=== PATIENT | male | born 1965 | race Caucasian/White ===

== ENCOUNTER 2022-05-31 14:40 | Outpatient (CLI) | payer BC, SELFPAY ==
--- NOTE | 2022-05-31 15:00 | ECHO_ITS ---
Patient Info Name: Garcia Hdz Age: 56 years : 1965 Gender: Male Ht: 67 in Wt: 290 lbs BSA: 2.56 m2 HR: 89 bpm BP: 144 / 81 mmHg Technical Quality: Fair Exam Date: 05/31/2022 3:10 PM Exam Location: [facility] Patient Status: Outpatient Admit Date: 05/31/2022 Staff Ordering Physician: Tomasa Sandoval NP Senior Product Development Scientist: Ivania Goff RDCS Attending Provider: Tomasa Sandoval NP Exam Type: CA echo doppler color flow Study Info Indications I10 - Essential (primary) hypertension Complete two-dimensional, color flow and Doppler transthoracic echocardiogram is performed. Summary 1. Complete two-dimensional, color flow and Doppler transthoracic echocardiogram is performed. 2. Left ventricular chamber dimension is mildly enlarged. 3. Left ventricular systolic function is normal, estimated at 55-60%. 4. There is mildly increased left ventricular wall thickness. 5. The left ventricular diastolic function is grade I diastolic dysfunction. 6. E/e' 6 is not elevated. 7. There is mild aortic valve sclerosis. 8. There is trace tricuspid valve regurgitation. 9. No pulmonary hypertension, estimated pulmonary arterial systolic pressure is 32 mmHg. Left Ventricle E/e' 6 is not elevated. Left ventricular chamber dimension is mildly enlarged. Left ventricular systolic function is normal, estimated at 55-60%. There is mildly increased left ventricular wall thickness. The left ventricular diastolic function is grade I diastolic dysfunction. Right Ventricle Right ventricular chamber dimension is normal. Right ventricular systolic function is normal. Left Atria Left atrial chamber dimension is normal. Right Atria Right atrial chamber dimension is normal. Aortic Valve The aortic valve is trileaflet. There is mild aortic valve sclerosis. There is no aortic valve stenosis. There is no aortic valve regurgitation. Pulmonic Valve There is no pulmonic regurgitation. Mitral Valve There is no mitral valve stenosis. There is no mitral valve regurgitation. Tricuspid Valve There is trace tricuspid valve regurgitation. No pulmonary hypertension, estimated pulmonary arterial systolic pressure is 32 mmHg. Pericardium/Pleural There is no pericardial effusion. Inferior Vena Cava Normal inferior vena cava with >50% collapse upon inspiration consistent with normal right atrial pressure, 5 mmHg. Aorta The aortic root size at the sinus of Valsalva is normal. Left Ventricular Outflow Tract Name Value Normal LVOT 2D LVOT Diameter 2.1 cm LVOT Doppler LVOT Peak Gradient 6 mmHg LVOT Mean Gradient 3 mmHg LVOT VTI 23 cm LVOT VTI/AV VTI Ratio 0.8 LVOT Stroke Volume 76 ml LVOT CO 17.4 l/min LVOT CI 6.8 l/min/m2 Pulmonic Valve Name Value Normal
--- NOTE | 2022-05-31 15:37 | ECG_ITS ---
Measurements Intervals [place] Rate: 71 P: 11 MS: 163 QRS: 0 QRSD: 96 T: 26 QT: 341 QTc: 371 Interpretive Statements SINUS RHYTHM CANNOT RULE OUT SEPTAL MYOCARDIAL INFARCTION , PROBABLY OLD [40+ ms Q WAVE IN V1/V2] NONSPECIFIC T-WAVE ABNORMALITY ABNORMAL ECG NO PREVIOUS ECG AVAILABLE FOR COMPARISON Electronically Signed On 06-01-2022 9:57:37 CDT by Jose Sanchez M.D.
== END 2022-05-31 14:41 | disposition home or self-care (01) ==
PROVIDERS: PCP Family Medicine; Visit Provider Nurse Practitioner Family
DX: R06.02 Shortness of breath (principal); I10 Essential (primary) hypertension; I70.0 Atherosclerosis of aorta
CPT/HCPCS: 93005; 93306

== ENCOUNTER → 2023-04-29 15:35 | Outpatient (CLI) | payer BC, SELFPAY ==
--- NOTE | ~2023-04-29 | XR_ITS ---
XR lumbar spine min 4V 04/29/2023 15:58 Indication: Low back pain Procedure: 5 views lumbar spine Comparison: No prior studies for comparison. Findings: Vertebral body heights are maintained. There is disc narrowing at L5-S1. There is mild levo scoliosis. Pedicles intact. There is facet hypertrophy of the mid and lower lumbar spine. No acute fr acture, subluxation or dislocation. No spondylolisthesis. Sacral foramen are symmetric. Impression: 1: Mild lumbar spondylosis with levoscoliosis. Reviewed, dictated and finalized at location A. Impression: 1: Mild lumbar spondylosis with levoscoliosis.
== END ==
PROVIDERS: PCP Nurse Practitioner Family; Visit Provider Nurse Practitioner Family
DX: M47.816 Spondylosis without myelopathy or radiculopathy, lumbar region (principal)
CPT/HCPCS: 72110

== ENCOUNTER 2025-02-25 00:10 | Day surgery (SDC) | payer BC, SELFPAY ==
[2025-02-18 09:33] VITALS: BMI 36.8
--- OUTSIDE RECORDS SUMMARY | 2025-02-25 00:13 | XMS_ITS | Clinical Summary ---
Author Organization [facility] [place] [address] Address [address] [place] [address] Care Team Providers Care Safe Expert Name Role Phone Reza Finn MD Primary Care Provider [phone] Allergies No known active allergies Medications PARoxetine (PAXIL) 20 mg tabletIndication s:Anxiety with Depression Take 1 tablet (20 mg total) by mouth every morning 11 9 Active testosterone cypionate (DEPO-TESTOTERON E) 200 mg/mL injectionIndicat ions:Androgen Deficiency once a week On Sundays 3 8 Active tadalafiL (CIALIS) 20 mg tablet Take 1 tablet (20 mg total) by mouth daily as needed for erectile dysfunction 0 Active calcium carb/magnesium hydrox (ROLAIDS ORAL) Take by mouth as needed (heartburn) Active Rybelsus 7 mg tabletIndication s:type 2 diabetes mellitus Take 1 tablet (7 mg total) by mouth daily before breakfast 2 Active levothyroxine (SYNTHROID) 88 mcg tabletIndication s:hypothyroidism Take 1 tablet (88 mcg total) by mouth campaign marketing manager before breakfast 2 Active metFORMIN XR (GLUCOPHAGE XR) 500 mg 24 hr tabletIndication s:type 2 diabetes mellitus Take 4 tablets (2,000 mg total) by mouth daily with breakfast 2 Active tamsulosin (FLOMAX) 0.4 mg extended release capsuleIndicatio ns:benign prostatic hyperplasia with lower urinary tract sx Take 1 capsule (0.4 mg total) by mouth nightly 2 Active pravastatin (PRAVACHOL) 40 mg tabletIndication s:hyperlipidemia Take 1 tablet (40 mg total) by mouth nightly 2 Active irbesartan-hydro chlorothiazide (AVALIDE) 150-12.5 mg per tabletIndication s:hypertension Take 1 tablet by mouth every morning 2 Active aspirin (Adult Low Dose Aspirin) 81 mg enteric coated tablet Take 1 tablet (81 mg total) by mouth daily 2 Active Additional Information Patient taking differently:81 mg oralEvery morning, Indications: Heart Health, Informant: Self, Reported on 09/04/2023 cyclobenzaprine (FLEXERIL) 10 mg tablet Take 1 tablet (10 mg total) by mouth 3 (three) times a day as needed for muscle spasms 20 tablet 3 Active meloxicam (MOBIC) 15 mg tablet Take 1 tablet (15 mg total) by mouth daily 30 tablet 1 3 Active Additional Information Patient taking differently:15 mg oralDaily PRN, pain, Informant: Self, Reported on 09/04/2023 oxyCODONE-acetam inophen (PERCOCET) 5-325 mg per tabletIndication s:Pain Take 1 tablet by mouth every 4 (four) hours as needed for pain 20 tablet 3 Active ondansetron (ZOFRAN) 4 mg tablet Take 1 tablet (4 mg total) by mouth every 8 (eight) hours as needed for nausea 12 tablet 3 Active methylPREDNISolo ne (Medrol, Ramos,) 4 mg Dosepack Take 1 tablet (4 mg total) by mouth as directed Take as directed on package 1 packet 4 Active Active Problems Problem Noted Date Diagnosed Date Trochanteric bursitis of left hip 06/22/2024 Complex tear of medial menis cus of right knee as current injury 09/02/2023 Abnormal stress test 08/27/2022 NSVT (nonsustained ventricular tachycardia) 08/07 DYAN on CPAP 07/18/2022 SUMMERS (dyspnea on exertion) 07/18/2022 Abnormal ECG 07/18/2022 Multiple risk factors for coronary artery diseas e 07/18/2022 Hypertension associated with diabetes 07/18/2022 Mixed diabetic hyperlipidemi a associated with type 2 diabetes mellitus 07/18/2022 Morbid (severe) obesity due to excess calories 1 Body mass index (BMI) 45.0-49.9, adult 2 Chronic pain 01/21/2022 Low back pain 01/21/2022 Obesity 01/21/2022 Sacroiliitis, not elsewhere classified 2 Trochanteric bursitis of right hip 01/21/2022 Acute medial meniscus tear of left knee 07/10/20 21 Overview (07/10/2021): Added automatically from request for surgery [id number] 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 Good ROM KNEE SURGERY 10/06/2012 - 10/05/2013 Left SHOULDER SURGERY 10/06/2015 - 10/05/2016 Left UMBILICAL HERNIA REPAIR KNEE ARTHROSCOPY 10/06/2020 - 10/05/2021 Left Medical History Medical History Date Comments Hypertension well controlled Hyperlipidemia on statin Hypothyroid on armour thyroi d Sleep apnea wears CPAP Low testosterone GERD (gastroesophageal reflux disease) Rolaids PRN- ~1x/month Family History Medical History Relation Name Comments Diabetes Father Hypertension Father Diabetes Mother Heart disease Mother Hypertension Mother Anesthesia problems Neg Hx Relation Name Status Comments Father Mother Social History Tobacco Use Types Packs/Day Years Used Date Smoking Tobacco: Never Smokeless Tobacco: Never Alcohol Use Standard Drinks/Week Comments Yes 0 (1 standard drink = 0.6 oz pur e alcohol) AUDIT-C Answer Date Recorded Q1: How often do you have a drink containing alc ohol? 2-3 times a week 09/16/2023 Q2: How many drinks containi ng alcohol do you have on a typical day when you are drinking? 1 or 2 09/16/2023 Frequency of Binge Drinking Not on file 09/05 Personal Safety Answer Date Recorded Have you ever been in or are you currently in a harmful physical or emotional relationship or is someone making you feel afraid or unsafe? 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 Gender Identity Not on file Sexual Orientation Not on file Obstetrics History Last Filed Vital Signs Vital Sign Reading Time Taken Comments Blood Pressure 126/68 09/16/2023 11:35 AM TABLE MACHINE OPERATOR Pulse 84 09/16/2023 11:40 AM TABLE MACHINE OPERATOR Temperature 36 C (96.8 F) 09/16/2023 11:40 AM TABLE MACHINE OPERATOR Respiratory Rate 19 09/16/2023 11:40 AM TABLE MACHINE OPERATOR Oxygen Saturation 92% 09/16/2023 11:40 AM TABLE MACHINE OPERATOR Inhaled Oxygen Concentration - - Weight 114.3 kg (252 lb) 06/22/2024 1:25 PM CDT Height 170.2 cm (5' 7 ) 06/22/2024 1:25 PM CDT Body Mass Index 39.47 06/22/2024 1:25 PM CDT Plan of Treatment Health Maintenance Due Date Last Done Comments Albumin Creatinine Ratio, Urine 1965 Colon Cancer Screening-Colonoscopy 1965 Depression Screening 1965 Hemoglobin A1C 1965 Hepatitis C Screening 1965 Prostate Cancer Screening-PSA 1965 Dilated Eye Exam 1965 Foot Exam 1965 DTaP/Tdap/Td Vaccine (1 - Tdap) 1974 Hepatitis B Screening 1981 Regular Well Visit/Exam 18-64 1981 Pneumococcal vaccine <65 (1 of 2 - PCV) 1982 Zoster Vaccine (1 of 2) 2013 Lipid Panel 07/18/2023 07/18/2022 eGFR 10/09/2023 10/09/2022 Covid-19 Vaccine ( season) 2024, 06/03/2021 Influenza Vaccine (Season Ended) 2025 Medical Devices Implanted Type Area Pig Conveyor Operator Device Identifier Shelf Expiration Date Model / Serial / Lot Screws-Tibia Left: Knee Plates & Screws Neck Description:Cervical fusion with 3 plates & 6 screws Procedures Procedure Name Priority Date/Time Associated Diagnosis Comments EGFR STAT 10/09/2022 1:26 PM TABLE MACHINE OPERATOR POCT LIPID PANEL Routine 07/18/2022 12:1 5 PM CDT Lipid screening from Last 3 Months or Most Recently Relevant to Health Maintenance Results * eGFR (10/09/2022 1:26 PM TABLE MACHINE OPERATOR) eGFR 99 mL/min/1. 73 m2 [facility] Comment: Interpretive Data Reference Interval Normal >/= 90 mL/min/1.73m2 Mildly decreased* 60 - 89 mL/min/1.73m2 Mildly to moderately decreased 45 - 59 mL/min/1.73m2 Moderately to severely decreased 30 - 44 mL/min/1.73m2 Severely decreased 15 - 29 mL/min/1.73m2 Kidney Failure < 15 mL/min/1.73m2 *Relative to young adult level Estimated glomerular filtration rate is determined by the 2020 CKD-EPI equation recommended by the National Kidney Foundation (A Unifying Approach to GFR Estimation: Recommendations of the NKF-ASK Task Force on Reassessing the Inclusion of Race in Diagnosing Kidney Disease, JASN 2020). The CKD-EPI equation should not be used for patients with unstable renal function and has not been validated in children and those over 70. Current interpretive data was last reviewed 2021. Blood 10/09/2022 1:26 PM TABLE MACHINE OPERATOR 10/09/2022 1:34 PM TABLE MACHINE OPERATOR Sven Mcfarland MD LAB BLOOD ORDERABLES Fi nal Result [facility] [address] Department [place] [address] * POCT lipid panel (07/18/2022 12:15 PM CDT) Cholesterol, POC 174 mg/dL HDL, POC 36 mg/dL Triglycerides, POC 210 mg/dL LDL Cholesterol POC 96 mg/dL Chol/HDL Ratio, POC 4.9 Comment:Glucose 102 Non-HDL Cholesterol, POC 138 mg/dL Cholesterol Total, POC 174 mg/dL Capillary blood 07/18/2022 1 2:15 PM CDT us Guillaume Sheets MD POINT OF CARE TEST ORDER ROSEMARY Final Result from Last 3 Months or Most Recently Relevant to Health Maintenance Insurance [place]ESS CHOICE [place] Care Teams Safe Expert Relationship Specialty Start Date End Date Reza Finn MD [address] [id number] PCP - General Family Medicine 05/08/21
--- OUTSIDE RECORDS SUMMARY | 2025-02-25 00:14 | XMS_ITS | Continuity of Care Document ---
Author Organization [facility] Address [address] [place] [address] [address] [place] [address] Phone Care Team Providers Care Sports Medicine Specialist Name Role Phone Jesusita Cuadra PT Unavailable Unavailable Procedures Procedure Date Progress Note Therapeutic Activities Neuromuscular Re-Ed Therapeutic Exercise Manual Therapy Therapeutic Activities Neuromuscular Re-Ed Therapeutic Exercise Manual Therapy Therapeutic Activities Neuromuscular Re-Ed Therapeutic Exercise Manual Therapy Therapeutic Activities Neuromuscular Re-Ed Therapeutic Exercise Manual Therapy Therapeutic Activities Neuromuscular Re-Ed Therapeutic Exercise Manual Therapy Hot or Cold Pack Therapeutic Activities Neuromuscular Re-Ed Therapeutic Exercise Manual Therapy Hot or Cold Pack Therapeutic Activities Neuromuscular Re-Ed Therapeutic Exercise Manual Therapy Hot or Cold Pack Therapeutic Activities Neuromuscular Re-Ed Therapeutic Exercise Manual Therapy Hot or Cold Pack Therapeutic Activities Neuromuscular Re-Ed Manual Therapy Therapeutic Exercise Hot or Cold Pack Therapeutic Activities Neuromuscular Re-Ed Therapeutic Exercise Manual Therapy Therapeutic Activities Neuromuscular Re-Ed Therapeutic Exercise Manual Therapy Hot or Cold Pack Doc neg elder mal no plan PT Evaluation Moderate Complexity Therapeutic Activities Neuromuscular Re-Ed Therapeutic Exercise Manual Therapy Hot or Cold Pack Therapeutic Activities Neuromuscular Re-Ed Therapeutic Exercise Manual Therapy Hot or Cold Pack Therapeutic Activities Neuromuscular Re-Ed Therapeutic Exercise Manual Therapy Hot or Cold Pack Therapeutic Activities Neuromuscular Re-Ed Therapeutic Exercise Manual Therapy Hot or Cold Pack Electrical Stimulation Therapeutic Activities Neuromuscular Re-Ed Therapeutic Exercise Neuromuscular Re-Ed Therapeutic Exercise Manual Therapy Hot or Cold Pack Electrical Stimulation Neuromuscular Re-Ed Therapeutic Exercise Manual Therapy Neuromuscular Re-Ed Therapeutic Exercise Hot or Cold Pack Electrical Stimulation Neuromuscular Re-Ed Therapeutic Exercise Manual Therapy Hot or Cold Pack Electrical Stimulation Therapeutic Activities Neuromuscular Re-Ed Therapeutic Exercise Manual Therapy PT Evaluation Moderate Complexity Therapeutic Activities Neuromuscular Re-Ed Manual Therapy Therapeutic Activities Neuromuscular Re-Ed Therapeutic Exercise Hot or Cold Pack Therapeutic Activities Manual Therapy Neuromuscular Re-Ed Hot or Cold Pack Neuromuscular Re-Ed Hot or Cold Pack Therapeutic Activities Therapeutic Exercise Manual Therapy Manual Therapy Therapeutic Exercise Hot or Cold Pack Neuromuscular Re-Ed Therapeutic Activities Therapeutic Activities Neuromuscular Re-Ed Manual Therapy Therapeutic Exercise Hot or Cold Pack PT Evaluation Moderate Complexity Neuromuscular Re-Ed Manual Therapy Therapeutic Activities Therapeutic Exercise Hot or Cold Pack Therapeutic Activities Neuromuscular Re-Ed Manual Therapy Therapeutic Exercise Progress Note Therapeutic Activities Manual Therapy Therapeutic Exercise Neuromuscular Re-Ed Therapeutic Activities Manual Therapy Hot or Cold Pack Neuromuscular Re-Ed Therapeutic Exercise Neuromuscular Re-Ed Therapeutic Activities Manual Therapy Hot or Cold Pack Therapeutic Exercise Therapeutic Exercise Neuromuscular Re-Ed Manual Therapy Hot or Cold Pack Therapeutic Exercise Neuromuscular Re-Ed Manual Therapy Hot or Cold Pack PT Evaluation Moderate Complexity Neuromuscular Re-Ed Therapeutic Exercise Manual Therapy Progress Note Therapeutic Activities Therapeutic Exercise Manual Therapy Hot or Cold Pack Manual Therapy Therapeutic Activities Therapeutic Exercise Hot or Cold Pack Therapeutic Activities Therapeutic Exercise Manual Therapy Manual Therapy Therapeutic Activities Therapeutic Exercise Electrical Stimulation Hot or Cold Pack COVID-19 Additional Safety Supplies/Time Therapeutic Activities Manual Therapy Therapeutic Exercise COVID-19 Additional Safety Supplies/Time Hot or Cold Pack Therapeutic Activities Therapeutic Exercise COVID-19 Additional Safety Supplies/Time Manual Therapy Therapeutic Exercise COVID-19 Additional Safety Supplies/Time Manual Therapy Hot or Cold Pack Therapeutic Exercise Hot or Cold Pack Manual Therapy PT Evaluation Low Complexity COVID-19 Additional Safety Supplies/Time Therapeutic Activities Therapeutic Exercise Neuromuscular Re-Ed Hot or Cold Pack Manual Therapy Progress Note Therapeutic Activities Neuromuscular Re-Ed Therapeutic Exercise Manual Therapy Hot or Cold Pack Therapeutic Activities Neuromuscular Re-Ed Therapeutic Exercise Manual Therapy Hot or Cold Pack Progress Note Therapeutic Activities Neuromuscular Re-Ed Therapeutic Exercise Manual Therapy Therapeutic Activities Neuromuscular Re-Ed Manual Therapy Therapeutic Exercise Hot or Cold Pack Therapeutic Activities Neuromuscular Re-Ed Therapeutic Exercise Manual Therapy Therapeutic Activities Neuromuscular Re-Ed Therapeutic Exercise Manual Therapy Therapeutic Activities Neuromuscular Re-Ed Therapeutic Exercise Manual Therapy Hot or Cold Pack Therapeutic Activities Neuromuscular Re-Ed Therapeutic Exercise Manual Therapy Therapeutic Activities Therapeutic Exercise Neuromuscular Re-Ed Manual Therapy Hot or Cold Pack Therapeutic Activities Neuromuscular Re-Ed Therapeutic Exercise Manual Therapy Hot or Cold Pack Therapeutic Activities Neuromuscular Re-Ed Therapeutic Exercise Manual Therapy PT Evaluation Low Complexity Therapeutic Activities Therapeutic Exercise Manual Therapy Therapeutic Exercise Neuromuscular Re-Ed Manual Therapy Hot or Cold Pack Therapeutic Exercise Neuromuscular Re-Ed Manual Therapy Hot or Cold Pack Therapeutic Exercise Neuromuscular Re-Ed Manual Therapy Therapeutic Exercise Neuromuscular Re-Ed Manual Therapy Therapeutic Exercise Manual Therapy Hot or Cold Pack PT Evaluation Low Complexity Therapeutic Exercise Manual Therapy Hot or Cold Pack Free Assessment Advance Directives Directive Yes / No Effective Date File Name No Information Encounters Encounter Description Practice Location Reason(s) For Visit Diagnoses Date Provider Providers Copied on Encounter [facility] [address], [id number], tel:[phone] Mihir No Information Khalif Mc. . [facility] [address], [id number], tel:[phone] [place] No Information Khalif Mc. . Referring Provider: Jose García, [address] [place], [address]. tel:[phone] [facility] [address] [place] [address], [id number], tel:[phone] Mihir No Information Rudy Flynn. [address] [place] [address], [address], [place], [facility], . tel:[phone] Referring Provider: Jose García, [address] [place], [address]. tel:[phone] [facility] [address], [id number], tel:[phone] Mihir No Information Anurag Estrada. . Referring Provider: Jose García, [address] [place], [address]. tel:[phone] [facility], [id number], tel:[phone] Laura No Information Rudy Flynn. [address] [facility], [address], [place], [address], [place]. tel:[phone] Referring Provider: Jose García, [address] [place], [address]. tel:[phone] [facility], [address] [place] [address], [place], [place], [id number], tel:[phone] Mihir No Information Anurag Arreagaon. . Referring Provider: Jose García, [address] [place], [address]. tel:[phone] [facility], [address] [place] [address], [place], [place], [id number], [place] tel:[phone] Laura No Information Rudy Flynn. [address] [place] [address], [address], [place], [address], [place]. tel:[phone] Referring Provider: Jose García, [address] [place], [address]. tel:[phone] [facility], [address] [place] [address], [id number], [place] tel:[phone] Laura No Information Anurag Arreagaon. . Referring Provider: Jose García, [address] [place], [address]. tel:[phone] [facility], [address] [place], [place] [address] [address], [place], [place], [id number], [place] tel:[phone] Laura No Information Rudy Flynn. [address] [facility], [address], [place], [address], [place]. tel:[phone] Referring Provider: Jose García, [address] [place], [address]. tel:[phone] [facility], [address] [place] [address], [id number], [place] tel:[phone] Laura No Information Rudy Flynn. [address] [facility], [address], [place], [place], [facility], . tel:[phone] Referring Provider: Jose García, [address] , [place], [address]. tel:[phone] [facility], [address], [id number], tel:[phone] Mihir No Information Florencio Villarreal. . Referring Provider: Jose García, [address] , [place], [address]. tel:[phone] [facility], [address] [place] [address], [place], [place], [id number], tel:[phone] Laura No Information Rudy Flynn. [address] [facility], [address], [place], [place], [facility], . tel:[phone] Referring Provider: Jose García, [address] , [place], [address]. tel:[phone] [facility] [place] [address], [id number], tel:[phone] Laura No Information Khalif Mc. . Referring Provider: Jose García, [address] [place], [address]. tel:[phone] [facility], [address] [place] [address], [place], [place], [id number], [place] tel:[phone] Laura No Information Rudy Flynn. [address] [facility], [address], [place], [place], [facility], . tel:[phone] Referring Provider: Tomasa Sandoval, [address], [place], [address]. tel:[phone] [facility] [address], [place], [place], [id number], tel:[phone] Laura No Information Rudy Flynn. [address] [place] [address], [address], [place], [facility], . tel:[phone] Referring Provider: Tomasa Sandoval, [address], [place], [address]. tel:[phone] [address], [place], [place], [id number], tel:[phone] Laura No Information Rudy Flynn. [address] [place] [address], [address], [place], [facility], . tel:[phone] Referring Provider: Tomasa Sandoval, [address], [place], [address]. tel:[phone] [place] [address] [place], [place] [address], [place], [place], [id number], tel:[phone] Laura No Information Khalif Mc. . Referring Provider: Tomasa Sandoval, [address], [place], [address]. tel:[phone] [address], [place], [place], [id number], tel:[phone] Mihir No Information Rudy Flynn. [address] [place] [address], [address], [place], [facility], . tel:[phone] Referring Provider: Tomasa Sandoval, [address], [place], [address]. tel:[phone], [place], [place], [id number], tel:[phone] Laura No Information Amber Brownlee. . Referring Provider: Tomasa Sandoval, [address], [place], [address]. tel:[phone] [place] [address], [address], [place], [place], [id number], [place] tel:[phone] Laura No Information Garrels Jesusita. . Referring Provider: Tomasaesther Sandoval, [address], [place], [address]. tel:[phone] [facility] [address], [place], [place], [id number], tel:[phone] Laura No Information Garrels Jesusita. . Referring Provider: Tomasaesther Sandoval, [address] [facility] [address], [place], [address]. tel:[phone] [facility], [address] [place], [place] [address] [address], [place], [place], [id number], tel:[phone] Mihir No Information Modglin Kem. . Referring Provider: Tomasa Jaime, [address], [place], [address]. tel:[phone] [facility], [place], [place], [id number], tel:[phone] Laura No Information Garrels Jesusita. . Referring Provider: Tomasa Jaime, [address] [facility] [address], [place], [address]. tel:[phone] [facility], [place], [place], [id number], [place] tel:[phone] Mihir No Information Garrels Jesusita. . Referring Provider: Jose García, [address] [facility] , [place], [address]. tel:[phone] [facility], [place], [place], [id number], [place] tel:[phone] Mihir No Information Khalif Mc. . Referring Provider: Jose García, [address] [place], [address]. tel:[phone] [place] [address], [id number], tel:[phone] Laura No Information Rudy Flynn. [address] [facility], [address], [place], [place], [facility], . tel:[phone] Referring Provider: Jose García, [address] [place], [address]. tel:[phone], [id number], tel:[phone] Laura No Information Rudy Flynn. [address] [place] [address], [address], [place], [facility], . tel:[phone] Referring Provider: Jose García, [address] [place], [address]. tel:[phone], [id number], tel:[phone] Mihir No Information Rudy Flynn. [address] [place] [address], [address], [place], [facility], . tel:[phone] Referring Provider: Jose García, [address] [place], [address]. tel:[phone], [id number], tel:[phone] Laura No Information Khalif Mc. . Referring Provider: Jose García, [address] [place] [place], [address]. tel:[phone] [facility] [address] [place] [address], [id number], tel:[phone] Mihir No Information Angel Weinberg. . Referring Provider: [facility] [place] [address], [place], [place], [id number], tel:[phone] Mihir No Information Angel Weinberg. . Referring Provider: [facility] [place] [address], [place], [place], [id number], tel:[phone] Laura No Information Rudy Flynn. [address] [place] [address], [address], [place], [facility], . tel:[phone] Referring Provider: [facility]. [facility] [address] [place] [address], [place], [place], [id number], tel:[phone] Laura No Information Rudy Flynn. [address] [place] [address], [address], [place], [facility], . tel:[phone] Referring Provider: [facility]. [facility] [address] [place] [address], [place], [place], [id number], tel:[phone] Mihir No Information Rudy Flynn. [address] [place] [address], [address], [place] [address], . tel:[phone] Referring Provider: [facility]. [facility] [address] [place] [address], [place], [place], [id number], tel:[phone] Mihir No Information Rudy Flynn. [address] [place] [address], [address], [place] [address], . tel:[phone] Referring Provider: [facility], [address] [place] [address], [place], [place], [address], tel:[phone] Laura No Information Yessenia Hoffman. [facility], [address], [place], [place], [facility], [place]. tel:[phone] Referring Provider: [facility], [place], [place], [address], tel:[phone] Mihir No Information Bermeo Satnam. . [facility], [place], [place], [address], tel:[phone] Laura No Information Rudy Flynn. [address] [place] [address], [address], [place], [facility], [place]. tel:[phone] [facility], [place], [place], [address], tel:[phone] Laura No Information Angel Weinberg. . [facility], [place], [place], [address], tel:[phone] Laura No Information Bermeo Satnam. . [facility], [place], [place], [address], tel:[phone] Mihir No Information Bermeo Satnam. . [facility], [place], [id number], tel:[phone] Laura No Information Bermeo Satnam. . [facility], [place], [place], [address], tel:[phone] Laura No Information Rudy Flynn. [address] [place] [address], [address], [place], [facility], . tel:[phone] [facility], [place], [place], [address], tel:[phone] Laura No Information Beremo Satnam. . [facility] [place] [address], [place], [place], [id number], tel:[phone] Laura No Information Rudy Flynn. [address] [place] [address], [address], [place], [facility], . tel:[phone] Referring Provider: [facility] [place] [address], [place], [place], [address], tel:[phone] Laura No Information Angel Weinberg. . Referring Provider: [facility]. [facility] [address] [place] [address], [place], [place], [address], tel:[phone] Mihir No Information Rudy Flynn. [address] [place] [address], [address], [place], [facility], . tel:[phone] Referring Provider: [facility] [place] [address], [place], [place], [address], tel:[phone] Laura No Information Angel Weinberg. . Referring Provider: [facility] [place] [address], [place], [place], [address], tel:[phone] Mihir No Information Bermeo Satnam. . Referring Provider: [facility] [place] [address], [place], [place], [address], tel:[phone] Laura No Information Angel Weinberg. . Referring Provider: [facility] [place] [address], [place], [place], [address], tel:[phone] Mihir No Information Angel Weinberg. . Referring Provider: [facility] [place] [address], [place], [place], [address], tel:[phone] Laura No Information Jean-Claude Hay. . Referring Provider: [facility] [address] [place] [address], [place], [place], [address], tel:[phone] Laura No Information Angel Weinberg. . Referring Provider: [facility]. [facility] [address] [place] [address], [place], [place], [address], tel:[phone] Mihir No Information Angel Weinberg. . Referring Provider: [facility] [place] [address], [place], [place], [address], tel:[phone] Laura No Information Rudy Flynn. [address] [place] [address], [address] tel:[phone] Referring Provider: [facility]. [facility] [address] [place] [address], [place], [place], [address], tel:[phone] Laura No Information Rudy Flynn. [address] [place] [address], [address] [address], . tel:[phone] Referring Provider: [facility] [place] [address], [place], [place], [address], tel:[phone] Laura No Information Angel Weinberg. . Referring Provider: [facility] [place] [address], [place], [place], [address], tel:[phone] Mihir Low back painPain in left hip Obed Boyd. . Referring Provider: [facility] [place] [address], [place], [place], [address], tel:[phone] Laura Low back painPain in left hip Obed Boyd. . Referring Provider: [facility] [address], [place], [place], [address], tel:[phone] Laura Low back painPain in left hip Jean-Claude Hay. . Referring Provider: [facility] [address], [place], [place], [address], tel:[phone] Laura Low back painPain in left hip Obed Boyd. . Referring Provider: [facility] [address] [place] [address], [place], [place], [id number], tel:[phone] Laura Low back painPain in left hip Obed Boyd. . Referring Provider: [facility] [address] [place] [address], [place], [place], [address], tel:[phone] Mihir Low back painPain in left hip Jean-Claude Hay. . Referring Provider: [facility] [address] [facility] [address], [place], [place], [address], tel:[phone] Laura No Information Jean-Claude Hay. . Referring Provider: Physician Screen. Family History Family Member Type Diagnosis Age At Onset No Information Payers Payer name Insurance type Covered libertarian ID Authorshamika dillard(s) [facility] [id number] Social History Type Description Quantity Date Captured Comments Sex Male Smoking Status No Information Chief Complaint And Reason For Visit No Information Reason For Referral Reason For Referral No Information Plan Of Treatment Date Type Action Status Referral Ordered: Referrals: Specialist. Evaluate and Treat (related to F43.21) ordered Referral Ordered: Clinical Psychology (related to Depression) ordered Referral Ordered: Referrals: Specialist. Evaluate and Treat (related to Adjustment disorder with depressed mood) ordered History Of Present Illness Encounter Date Complaint History Of Prese nt Illness No Information Functional Status Date Functional Assessmen t No Information Instructions Date Instruction Additional Infor mation Giving encouragement to exercise Related to Overweight Giving encouragement to exercise Related to Overweight Giving encouragement to exercise Related to Overweight Giving encouragement to exercise Related to Overweight Giving encouragement to exercise Related to Overweight Giving encouragement to exercise Related to Overweight Giving encouragement to exercise Related to Overweight Giving encouragement to exercise Related to Overweight Giving encouragement to exercise Related to Overweight Giving encouragement to exercise Related to Overweight Giving encouragement to exercise Related to Overweight Assessments Type Assessment Date No Information Patient Care Teams Name Effective Dates (start - stop) Status Members No Information
--- OUTSIDE RECORDS SUMMARY | 2025-02-25 00:14 | XMS_ITS | Referral Summary ---
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 Overview (01/09/2017): Umbilical hernia Social History Tobacco Use Types Packs/Day Years [...] on file Legal Sex Male 12:38 AM [employer] Gender Identity Not on file Sexual Orientation Not on file Last Filed Vital Signs Vital Sign Reading Time Taken Comments Blood Pressure 126/68 09/16/2023 11:35 AM [employer] Pulse 84 09/16/2023 11:40 AM [employer] Temperature 36 C (96.8 F) 09/16/2023 11:40 AM [employer] Respiratory Rate 19 09/16/2023 11:40 AM [employer] Oxygen Saturation 92% 09/16/2023 11:40 AM [employer]ED [employer] Inhaled Oxygen Concentration - - Weight 114.3 kg (252 lb) 06/22/2024 1:25 PM CDT Height 170.2 cm (5' 7 ) 06/22/2024 1:25 PM CDT Body Mass Index 39.47 06/22/2024 1:25 PM CDT Plan of Treatment Not on file Medical Devices Implanted Type Area Employment Case Manager Device Identifier Shelf Expiration Date Model / Serial / Lot Screws-Tibia Left: Knee Plates & Screws Neck Description:Cervical fusion with 3 plates & 6 screws Procedures Procedure Name Priority Date/Time Associated Diagnosis Comments EGFR STAT 10/09/2022 1:26 PM [employer] POCT LIPID PANEL Routine 07/18/2022 12:1 5 PM CDT Lipid screening from Last 3 Months or Most Recently Relevant to Health Maintenance Results * eGFR (10/09/2022 1:26 PM ARMOURED [employer] ESC[employer]) Pathologist [facility] [place] eGFR 99 mL/min/1. 73 m2 [facility] Comment: Interpretive Data Reference Interval Normal >/= [...] last reviewed 2021. Blood 10/09/2022 1:26 PM [employer]OURED [employer] 10/09/2022 1:34 PM [employer]ED [employer] us Sven Mcfarland MD LAB BLOOD ORDERABLES Fi nal Result [facility] [address] Department [place] [employer] [place] [address] * POCT lipid panel (07/18/2022 12:15 PM CDT) Cholesterol, POC 174 mg/dL HDL, POC 36 mg/dL Triglycerides, POC 210 mg/dL LDL Cholesterol POC 96 mg/dL Chol/HDL Ratio, POC 4.9 Comment:Glucose 102 Non-HDL Cholesterol, POC 138 mg/dL Cholesterol Total, POC 174 mg/dL Capillary blood 07/18/2022 1 2:15 PM CDT Guillaume Sheets MD POINT OF CARE TEST ORDER [place] Final Result from Last 3 Months or Most Recently Relevant to Health Maintenance Insurance [employer] [facility] Care Teams Cable Repairer Relationship Specialty Start Date End Date Reza Finn MD [address] [address] PCP - General Family Medicine 05/08/21
--- OUTSIDE RECORDS SUMMARY | 2025-02-25 00:14 | XMS_ITS | Clinical Summary ---
Author Organization [facility] Address [address] [place] [address] Care Team Providers Care Wildlife Management Professor Name Role Phone Tomasa Sandoval APRN, CNP Primary Care Provider + Medications No known medications Encounters Date Type Department Care Team Description 12/29/2024 4:42 PM CDT - 12/29/2024 11:59 PM CDT [facility] [address] [place] [address] Tomasa Sandoval APRN, CNP Discharge Disposition: Discharged to home or Selfcare 12/29/2024 Travel 12/15/2024 Transcribe Orders [facility] Central Scheduling [address] [place] [address] Tomasa Sandoval APRN, CNP Left lower quadrant abdominal swelling, mass and lump (Primary Dx); Umbilical hernia without obstruction or gangrene from Last 3 Months Social History Tobacco Use Types Packs/Day Years Used Date Smoking Tobacco: Never Assessed Sex and Gender Information Value Date Recorded Sex Assigned at Not on file Legal Sex Male 2:40 PM CDT Gender Identity Not on file Sexual Orientation Not on file Plan of Treatment Health Maintenance Due Date Last Done Comments Hepatitis C Virus (HCV) Screening 1965 TdaP Immunization 1965 Colonoscopy 2008 Colorectal Cancer Screening 2008 Cologuard 2013 Immunochemical Fecal Occult Blood 2013 Pneumococcal Immunization (5 0+ years) (1 of 1 - PCV) 2013 Zoster Immunization (1 of 2) 2013 PSA Discussion 2018 SARS-COV-2 Immunization ( season) 2024 06/24/2021, 06/03/2021 Influenza Immunization (Seas on Ended) 2025 Respiratory Syncytial Virus (RSV) Immunization (Adult) (1 - 1-dose 75+ series) 2038 Hepatitis B Immunization Aged Out No longer eligible based on patient's age to complete this topic Meningococcal Immunization (ACWY) Aged Out No longer eligible b ased on patient's age to complete this topic Rotavirus Immunization Aged Out No lo nger eligible based on patient's age to complete this topic Procedures Procedure Name Priority Date/Time Associated Diagnosis Comments CT ABDOMEN W/O CONTRAST Routine 12/29/2024 4:59 PM CDT Left lower quadrant abdominal swelling, mass and lump Umbilical hernia without obstruction or gangrene from Last 3 Months Results * CT ABDOMEN W/O CONTRAST (12/29/2024 4:59 PM CDT) Anatomical Region Laterality Modality Abdomen N/A Computed Tomogra phy 01/05/2025 5:31 PM CDT Impressions 01/05/2025 5:33 PM CDT IMPRESSION: No acute findings. Minimal left caliectasis of uncertain significance. No urolithiasis. No abdominal mass is identified. Narrative 01/05/2025 5:33 PM CDT EXAM DESCRIPTION: CT ABDOMEN W/O CONTRAST REASON FOR STUDY: c/o LT flank pain x few weeks. Marked area w/ BB. HX of prior umbilical hernia. TECHNIQUE: CT scan of the abdomen performed without intravenous and without oral contrast using helical scanning technique. Reconstructed coronal and sagittal MPR images reviewed. All images stored on PACS. Automated exposure control was used as a dose optimization technique for this examination. COMPARISON: None REFERENCE: Per ACR white paper recommendations, unless otherwise specified no follow-up imaging is recommended for incidental renal and adrenal lesions per consensus recommendations based on imaging criteria. Further lab evaluation could be pursued based on clinical findings. FINDINGS: The sensitivity for detection of visceral lesions is diminished without the use of intravenous contrast. LOWER CHEST: No acute findings. LIVER: Normal length. GALLBLADDER: No radiodense gallstones. SPLEEN: Normal length. PANCREAS: No peripancreatic inflammation or fluid collection. ADRENALS: No adrenal mass. KIDNEYS/URINARY TRACT: Minimal left caliectasis without significant pelviectasis or proximal ureterectasis. No urolithiasis. GI: No obstruction of the visualized portion. The visualized appendix has normal appearance. PERITONEUM: No ascites or free air. VASCULATURE: No abdominal aortic aneurysm. MUSCULOSKELETAL: No acute skeletal abnormality. OTHER: No abdominal mass is identified. The area of concern indicated in the history as marked with a BB is not clearly visualized. THIS IS AN ELECTRONICALLY VERIFIED FINAL REPORT 01/05/2025 5:31 PM - Electronically signed by Ti Nowak M.D. JR: Report ID: [id number] Reading Location: [place] [address] Procedure Note Ti Nowak MD - 01/05/2025 EXAM DESCRIPTION: CT ABDOMEN W/O CONTRAST REASON FOR STUDY: c/o LT flank pain x few weeks. Marked area w/ BB. HX of prior umbilical hernia. TECHNIQUE: CT scan of the abdomen performed without intravenous and without oral contrast using helical scanning technique. Reconstructed coronal and sagittal MPR images reviewed. All images stored on PACS. Automated exposure control was used as a dose optimization technique for this examination. COMPARISON: None REFERENCE: Per ACR white paper recommendations, unless otherwise specified no follow-up imaging is recommended for incidental renal and adrenal lesions per consensus recommendations based on imaging criteria. Further lab evaluation could be pursued based on clinical findings. FINDINGS: The sensitivity for detection of visceral lesions is diminished without the use of intravenous contrast. LOWER CHEST: No acute findings. LIVER: Normal length. GALLBLADDER: No radiodense gallstones. SPLEEN: Normal length. PANCREAS: No peripancreatic inflammation or fluid collection. ADRENALS: No adrenal mass. KIDNEYS/URINARY TRACT: Minimal left caliectasis without significant pelviectasis or proximal ureterectasis. No urolithiasis. GI: No obstruction of the visualized portion. The visualized appendix has normal appearance. PERITONEUM: No ascites or free air. VASCULATURE: No abdominal aortic aneurysm. MUSCULOSKELETAL: No acute skeletal abnormality. OTHER: No abdominal mass is identified. The area of concern indicated in the history as marked with a BB is not clearly visualized. THIS IS AN ELECTRONICALLY VERIFIED FINAL REPORT 01/05/2025 5:31 PM - Electronically signed by Ti Nowak M.D. JR: Report ID: [id number] Reading Location: [id number] IMPRESSION: No acute findings. Minimal left caliectasis of uncertain significance. No urolithiasis. No abdominal mass is identified. us Tomasa Sandoval APRN, CNP IMG CT ORDERABLES Final Result from Last 3 Months Insurance [facility] Care Teams Wildlife Management Professor Relationship Specialty Start Date End Date Tomasa Sandoval APRN, CNP [address] [address] PCP - General Advanced Practice Nurse 12/15/24
--- OUTSIDE RECORDS SUMMARY | 2025-02-25 00:14 | XMS_ITS | Patient Health Record ---
Author Organization [facility] [place] Address [address] [place] [address] Care Team Providers Care Disk Sander Name Role Phone Reg German Unavailable [phone] ALLERGIES No Known Allergies REASON FOR REFERRAL No Information MEDICATIONS Medication SIG (Take, Route, Frequency, Duration) Notes Start Date End Date Status Anastrozole 1 MG 1 tablet Orally Once a day Active Testosterone Active Lisinopril 30 MG 1 tablet Orally Once a day Active [place] Thyroid Activ e Tamsulosin HCl 0.4 MG 1 capsule Orally Once a day Active Pravastatin Sodium 20 MG 1 tablet Orally Once a day Active SOCIAL HISTORY Tobacco Use: Social History Observation Description Date Details (start date - stop date) Never Smoker NA - NA Sex Assigned At : Social History Observation Description Sex Assigned At Unknown Tobacco Use/Smoking Question Answer Notes Are you a nonsmoker PROBLEMS Problem Type ICD Code Onset Dates Problem Status W/U Status Risk SNOMED Code Notes Problem Other chronic pain (G89.29) Active confirmed 04697373 Problem Sacroiliitis, not elsewhere classified (M46.1) Active confirmed 51630095 Problem Trochanteric bursitis, right hip (M70.61) Active confirmed [id number] Problem Obesity, unspecified classification, unspecified obesity type, unspecified whether serious comorbidity present (E66.9) Active confirmed 133044519 Problem Low back pain, unspecified (M54.50) Active confirmed 893774772 PLAN OF TREATMENT No Information MEDICAL (GENERAL) HISTORY Medical History History ICD Code high blood pressure thyroid disease Surgical History Surgery Date(Month/Year) neck fusion carpal tunnel left knee right shoulder
[2025-02-25 11:20] VITALS: BP 159/81; PULSE 64; RESP 18; TEMP 36.7; O2SAT 97
[2025-02-25] MEDS: LACTATED RINGERS 1,000 ML 150 ML IV CONT (11:32)
[2025-02-25 11:36] LABS: Glucose Point of Care 78 mg/dl (65-105)
--- NOTE | 2025-02-25 11:53 | P.PNAN_ITS ---
Anes - Initial Pre Proc Eval Procedure: Operation Date: 02/25/25 12:30 Proposed Procedures p Screening Colonoscopy - Ray Rivers MD Date/Time: 02/25/25 11:53 Surgeon: Ray Rivers MD Pre Op Diagnosis: Hx of colon polyps Patient Data Age: 59 Gender: M Height: 1.7 m Weight: 107.7 kg Last Vital Signs Temp 36.7 C 02/25/25 11:20 Pulse 64 02/25/25 11:20 Resp 18 02/25/25 11:20 BP 159/81 H 02/25/25 11:20 Pulse Ox 97 02/25/25 11:20 O2 Del Method Room Air 02/25/25 11:20 Allergies Allergy/AdvReac Type Severity Reaction Status Date / Time No Known Allergies Allergy Verified 02/25/25 11:17 Home Medications ?Medication ?Instructions ?Recorded ?Confirmed ?Type testosterone cypionate 100 mg/mL 100 mg IM ONCE 03/27/21 02/25/25 History intramuscular oil (Depo-Testosterone) paroxetine HCl 20 mg tablet (Paxil) 20 mg PO DAILY #30 tabs 01/12/24 02/25/25 Rx irbesartan 300 1 tablet PO DAILY #90 tabs 04/22/24 02/25/25 Rx mg-hydrochlorothiazide 12.5 mg tablet levothyroxine 100 mcg tablet 100 mcg PO DAILY #90 tabs 04/22/24 02/25/25 Rx pravastatin 40 mg tablet 40 mg PO DAILY #30 tabs 05/05/24 02/25/25 Rx metformin 500 mg tablet,extended 2,000 mg (4 x 500 mg) PO DAILY 06/11/24 02/25/25 Rx release 24 hr #120 tabs tamsulosin 0.4 mg capsule 0.4 mg PO DAILY #30 caps 06/14/24 02/25/25 Rx tadalafil 20 mg tablet (Cialis) 20 mg PO DAILY PRN sexual activity 07/23/24 02/18/25 Rx #10 tabs tirzepatide 2.5 mg/0.5 mL 2.5 mg (0.5 mL) subcut WEEKLY #2 mL 01/03/25 02/25/25 Rx subcutaneous pen injector (Mounjaro) Laboratory Tests 02/25/25 11:30 POC Capillary Glucose 78 mg/dl (65-105) Patient hx anesthesia problems: none Family hx anesthesia problems: none Results Review: All pre-operative results and documents have been reviewed as part of the pre- operative evaluation. [facility] Past Medical History Medical History Left lower quadrant abdominal swelling, mass and lump Umbilical hernia BMI 37.0-37.9, adult Prostate cancer screening BMI 38.0-38.9,adult Low back pain radiating to both legs Shortness of breath Visual disturbance Chronic anxiety Male erectile dysfunction, unspecified BMI 45.0-49.9, adult Diabetes mellitus Hypertension Prediabetes History of colon polyps BMI 40.0-44.9, adult Hyperlipidemia Hypogonadism Hypothyroid Thyroid disease HTN (hypertension) Surgical History Surgical History Hx of umbilical hernia repair 2012 Hx of knee surgery aug 07, 2022 and in 2011 History of carpal tunnel release 2009, 2010 History of neck surgery cervical fusion 2004 Family History Family History Mother Breast cancer Hypertension Heart disease Grandparent Malignant neoplasm of prostate Grandparent Brain cancer Social History Social History Smoking status: Never smoker Alcohol intake: current Alcohol use details: Socially Substance use: never Substance use type: does not use Current Housing: Decline to Answer Concerned About Future Housing: No Difficulty Paying Gas/Electric Bills: No Difficulty Paying for Meds: No Currently Unemployed: No Education: Decline to Answer Difficulty w/ Childcare or Family Care: Decline to Answer Living arrangements: with family Anes - Eval Final PreProcedure Day of Procedure 02/25/25 11:53 Patient weight: obese Heart: regular rate and rhythm Lungs: clear to auscultation Airway: Mallampati scale class II Neurological: alert and oriented Last oral intake: >/= 8 hours ASA classification: III Emergent: no Anesthetic plan: proceed Anesthesia type and monitoring: general GIVS and standard monitoring Results Review: All pre-operative results and documents have been reviewed as part of the pre- operative evaluation. Informed Consent: The patient's anesthetic plan and its attendant risks and benefits were discussed with the patient/family/POA. Questions were solicited and answers provided to the satisfaction of the patient/family/POA.
--- NOTE | 2025-02-25 12:26 | PM.HPGS ---
History of Present Illness History of Present Illness Consent: Risks, benefits, and alternatives have been discussed and questions answered. Patient agrees to proceed with procedure. Chief complaint: Hx of colon polyps Narrative: Garcia Hdz is a 59 year old male with colon polyp 5 years ago, also son with colon cancer Review of Systems Review of Systems: All systems reviewed & are unremarkable except as noted in HPI and below PMFSH Past Medical History Medical History (Updated 02/25/25 @ 12:27 by Ray Rivers MD) Family history of colon cancer Left lower quadrant abdominal swelling, mass and lump Umbilical hernia BMI 37.0-37.9, adult Prostate cancer screening BMI 38.0-38.9,adult Low back pain radiating to both legs Shortness of breath Visual disturbance Chronic anxiety Male erectile dysfunction, unspecified BMI 45.0-49.9, adult Diabetes mellitus Hypertension Prediabetes History of colon polyps BMI 40.0-44.9, adult Hyperlipidemia Hypogonadism Hypothyroid Thyroid disease HTN (hypertension) Surgical History Surgical History Hx of umbilical hernia repair 2012 Hx of knee surgery aug 07, 2022 and in 2011 History of carpal tunnel release 2009, 2010 History of neck surgery cervical fusion 2004 Family History Family History Mother Breast cancer Hypertension Heart disease Grandparent Malignant neoplasm of prostate Grandparent Brain cancer Social History Social History Smoking status: Never smoker Alcohol intake: current Alcohol use details: Socially Substance use: never Substance use type: does not use Current Housing: Decline to Answer Concerned About Future Housing: No Difficulty Paying Gas/Electric Bills: No Difficulty Paying for Meds: No Currently Unemployed: No Education: Decline to Answer Difficulty w/ Childcare or Family Care: Decline to Answer Living arrangements: with family Meds Home Medications and Allergies Home Medications ?Medication ?Instructions ?Recorded ?Confirmed ?Type testosterone cypionate 100 mg/mL 100 mg IM ONCE 03/27/21 02/25/25 History intramuscular oil (Depo-Testosterone) paroxetine HCl 20 mg tablet (Paxil) 20 mg PO DAILY #30 tabs 01/12/24 02/25/25 Rx irbesartan 300 1 tablet PO DAILY #90 tabs 04/22/24 02/25/25 Rx mg-hydrochlorothiazide 12.5 mg tablet levothyroxine 100 mcg tablet 100 mcg PO DAILY #90 tabs 04/22/24 02/25/25 Rx pravastatin 40 mg tablet 40 mg PO DAILY #30 tabs 05/05/24 02/25/25 Rx metformin 500 mg tablet,extended 2,000 mg (4 x 500 mg) PO DAILY 06/11/24 02/25/25 Rx release 24 hr #120 tabs tamsulosin 0.4 mg capsule 0.4 mg PO DAILY #30 caps 06/14/24 02/25/25 Rx tadalafil 20 mg tablet (Cialis) 20 mg PO DAILY PRN sexual activity 07/23/24 02/18/25 Rx #10 tabs tirzepatide 2.5 mg/0.5 mL 2.5 mg (0.5 mL) subcut WEEKLY #2 mL 01/03/25 02/25/25 Rx subcutaneous pen injector (Ronal) Allergies Allergy/AdvReac Type Severity Reaction Status Date / Time No Known Allergies Allergy Verified 02/25/25 11:17 Vital Signs Vital Signs - 24 hr 02/25/25 11:20 Temperature 98.0 F Pulse Rate 64 Respiratory Rate 18 Blood Pressure 159/81 H Pulse Oximetry 97 Oxygen Delivery Room Air Exam Const: General: comfortable and no acute distress HENMT: Face/Nose/Sinus: Normal nares present Eyes: General: appearance normal, both eyes and all related structures Neck: Neck: no JVD Resp: Auscultation: clear to auscultation bilaterally Cardio: Rate: regular rate Rhythm: regular rhythm GI: Inspection: non-distended GI Palp: Yes Soft to palpation Skin: General skin exam: normal color Neuro: General: gait normal Speech: normal speech Extrem: General: normal to inspection Psych: Mental Status: mental status grossly normal Assessment and Plan Assessment and plan (1) History of colon polyps: Code(s): Z86.010 - Personal history of colon polyps Status: Acute Assessment and Plan: colonoscopy (2) Family history of colon cancer: Code(s): Z80.0 - Family history of malignant neoplasm of digestive organs Status: Acute
[2025-02-25 12:43] VITALS: BP 102/63; PULSE 57; RESP 22; O2SAT 94
[2025-02-25 12:53] VITALS: BP 125/65; PULSE 64; RESP 18; O2SAT 97
[2025-02-25 13:03] VITALS: BP 121/70; PULSE 56; RESP 18; O2SAT 97
== END 2025-02-25 13:11 | disposition home or self-care (01) ==
PROVIDERS: PCP Nurse Practitioner Family; Referring Provider Nurse Practitioner Family; Visit Provider Internal Medicine Gastroenterology
PROC: 0DJD8ZZ Inspection of Lower Intestinal Tract, Via Natural or Artificial Opening Endoscopic (ICD-10-PCS; CPT 45378; principal; 2025-02-25 12:30)
DX: Z12.11 Encounter for screening for malignant neoplasm of colon (principal); D12.0 Benign neoplasm of cecum; D12.3 Benign neoplasm of transverse colon; D12.5 Benign neoplasm of sigmoid colon; K64.8 Other hemorrhoids; E03.9 Hypothyroidism, unspecified; E11.9 Type 2 diabetes mellitus without complications; I10 Essential (primary) hypertension; N52.9 Male erectile dysfunction, unspecified; E29.1 Testicular hypofunction; F41.9 Anxiety disorder, unspecified; E66.9 Obesity, unspecified; Z68.37 Body mass index [BMI] 37.0-37.9, adult; Z79.84 Long term (current) use of oral hypoglycemic drugs; Z79.85 Long-term (current) use of injectable non-insulin antidiabetic drugs; Z98.890 Other specified postprocedural states; Z98.1 Arthrodesis status; Z80.0 Family history of malignant neoplasm of digestive organs; Z80.3 Family history of malignant neoplasm of breast; Z80.42 Family history of malignant neoplasm of prostate; Z80.8 Family history of malignant neoplasm of other organs or systems; Z82.49 Family history of ischemic heart disease and other diseases of the circulatory system
CPT/HCPCS: 45385; 82948; 88305; J2704; J7120